=== PATIENT | female | born 1945 | race Caucasian/White ===

== ENCOUNTER → 2023-12-24 | Outpatient (REF) | payer OTHER | LOC: M SFHCDERM 17:32 | PROVIDERS: ATTEND Nurse Practitioner Family | DX: D04.61 Carcinoma in situ of skin of right upper limb, including shoulder (principal) ==

== ENCOUNTER → 2024-01-27 | Outpatient (REF) | payer OTHER | LOC: M SFHCDERM 17:19 | PROVIDERS: ATTEND Physician Assistant | DX: C44.622 Squamous cell carcinoma of skin of right upper limb, including shoulder (principal) ==

== ENCOUNTER → 2024-11-08 | Outpatient (REF) | payer OTHER, MEDICARE | LOC: M SFHCDERM 16:11 | PROVIDERS: ATTEND Nurse Practitioner Family | DX: L57.0 Actinic keratosis (principal) ==